=== PATIENT | female | born 1960 | race Caucasian/White ===

== ENCOUNTER 2022-12-01 08:53 | Outpatient (CLI) | payer OTHER, SELFPAY | END 2022-12-01 08:54 | disposition home or self-care (01) | LOC: NFLDREF 12-02 08:58 | PROVIDERS: PCP Family Medicine; Referring Provider Family Medicine; Visit Provider Family Medicine | DX: E78.5 Hyperlipidemia, unspecified (principal); I10 Essential (primary) hypertension | CPT/HCPCS: 80053; 80061 ==

== ENCOUNTER 2022-12-03 08:41 | Outpatient (CLI) | payer OTHER, SELFPAY ==
--- NOTE | 2022-12-03 09:15 | CRLHL7_ITS ---
For Patients: As a result of the Century Cures Act, medical imaging exams and procedure reports are released immediately into your electronic medical record. You may view this report before your referring provider. If you have questions, please contact your health care provider. BILATERAL SCREENING MAMMOGRAM WITH COMPUTER-AIDED DETECTION AND TOMOSYNTHESIS TECHNIQUE: CC and MLO views were obtained. These mammographic images have been obtained using full-field digital technique. These mammographic images were interpreted with the benefit of computer-aided detection. Breast Tomosynthesis was used in this interpretation. COMPARISON FILM: 08/13/20, 07/13/18, 06/07/17. FINDINGS: There are scattered areas of fibroglandular density IMPRESSION: There is no radiographic evidence for malignancy. ASSESSMENT: BI-RADS Category 1: Negative RECOMMENDATION: Routine screening mammogram in 1 year. A lay language report of this examination will be provided to the patient. Daniel Griffith M.D. Diagnostic Radiologist [email or web address] CONSTANTIN/Dictated by: Daniel Griffith MD @ 12/03/2022 12:35:00 PM (Electronically Signed)
== END 2022-12-03 08:42 | disposition home or self-care (01) ==
LOC: MAMMO 08:41
PROVIDERS: PCP Family Medicine; Visit Provider Family Medicine
DX: Z12.31 Encounter for screening mammogram for malignant neoplasm of breast (principal)
CPT/HCPCS: 77063; 77067

== ENCOUNTER 2025-04-19 19:36 | Outpatient (CLI) | payer MEDICARE, BC, SELFPAY | END 2025-04-19 19:37 | disposition home or self-care (01) | LOC: NFLDUCREF 19:37 | PROVIDERS: PCP Family Medicine; Visit Provider Physician Assistant Surgical | DX: L03.90 Cellulitis, unspecified (principal) | CPT/HCPCS: 87070 ==